=== PATIENT | male | born 1970 | race Caucasian/White ===

== ENCOUNTER 2021-08-03 10:17 | Outpatient (CLI) | payer OTHER | END 2021-08-03 10:18 | disposition home or self-care (01) | LOC: CSHLAB 10:17 | PROVIDERS: ATTEND Internal Medicine Gastroenterology | DX: Z20.822 Contact with and (suspected) exposure to COVID-19 (principal); Z12.11 Encounter for screening for malignant neoplasm of colon | CPT/HCPCS: U0003; U0005 ==

== ENCOUNTER 2021-08-08 08:56 | Day surgery (SDC) | payer OTHER ==
[2021-08-03 12:43] VITALS: BMI 23.6
[2021-08-08] MEDS ORDERED: Lidocaine 1% MPF 2 ML VIAL ONE (11:08)
[2021-08-08] MEDS ORDERED: Lidocaine 2% MPF 10 ML AMP (For Epidural Use) ONE (11:48)
[2021-08-08] MEDS ORDERED: PROPOFOL 60 ML ONE (11:48)
== END 2021-08-08 13:33 | disposition home or self-care (01) ==
LOC: CSHSDC 08:56
PROVIDERS: ATTEND Internal Medicine Gastroenterology
PROC: 0DJD8ZZ Inspection of Lower Intestinal Tract, Via Natural or Artificial Opening Endoscopic (ICD-10-PCS; principal; 2021-08-08)
DX: Z12.11 Encounter for screening for malignant neoplasm of colon (principal); Q43.8 Other specified congenital malformations of intestine; K64.9 Unspecified hemorrhoids; F71 Moderate intellectual disabilities; I10 Essential (primary) hypertension; E11.9 Type 2 diabetes mellitus without complications; G40.909 Epilepsy, unspecified, not intractable, without status epilepticus; D64.9 Anemia, unspecified; Z79.4 Long term (current) use of insulin; Z79.890 Hormone replacement therapy; Z79.899 Other long term (current) drug therapy
CPT/HCPCS: 36416; J2704

== ENCOUNTER 2022-01-12 14:10 | Emergency (ER) | payer OTHER ==
[2022-01-12 15:32] LABS: SARS-CoV-2 NAA Rapid Test Not Detected (NotDetected)
== END 2022-01-12 18:18 | disposition left against medical advice (07) ==
LOC: CSHERS 14:10
DX: Z53.21 Procedure and treatment not carried out due to patient leaving prior to being seen by health care provider (principal)